=== PATIENT | female | born 1955 | race Caucasian/White ===

== ENCOUNTER 2016-12-16 13:14 | Outpatient (CLI) | payer BC ==
--- NOTE | 2016-12-16 20:10 | RAD ---
CHEST TWO VIEWS: Date: 12-16-16 Comparison: 10-31-15 FINDINGS: There has been no significant interval change. The heart remains normal in size. Median sternotomy sutures vee prior surgery. The lungs are currently clear with no acute infiltrates or effusion se en. A little streaking near the cardiac apex is probably a fat pad and is no different than the azael or study. Faint calcification is seen in the aortic arch. Some mild degenerative changes are seen in the mid thoracic spine. The lungs are slightly hyperexpanded. IMPRESSION: Stable exam showing no acute finding. POS: HOME
== END 2016-12-16 13:15 | disposition home or self-care (01) ==
LOC: BURRAD 13:14
PROVIDERS: ATTEND Physician Assistant
DX: R05 Cough (principal)
CPT/HCPCS: 71020

== ENCOUNTER 2017-03-04 14:16 | Outpatient (CLI) | payer BC ==
[2017-03-04 14:47] LABS: ALT (SGPT) 28 U/L (8-55); AST (SGOT) 31 U/L (5-34); Albumin 4.1 g/dL (3.4-4.8); Alkaline Phosphatase 44 U/L (40-150); Anion Gap 15 mmol/L (10-20); BUN (Urea Nitrogen) 38 mg/dL (9.8-20.1); Bilirubin, Total 1.1 mg/dL (0.2-1.2); Calc. Creatinine Clearance 0 mL/min (70-130); Calcium 9.6 mg/dL (7.8-10.44); Carbon Dioxide 20 mmol/L (23-31); Chloride 101 mmol/L (98-107); Estimated GFR-MDRD 23; Globulin 3.5 g/dL (2.4-3.5); Glucose 206 mg/dL (80-115); Lipase 52 U/L (8-78); Potassium 4.7 mmol/L (3.5-5.1); Protein, Total 7.6 g/dL (6.0-8.3); Sodium 131 mmol/L (136-145)
[2017-03-04 14:48] LABS: Hemoglobin 11.6 g/dL (12.0-16.0); Lymphocytes 28 % (21-51); MDiff Complete? YES; Mean Corpuscular HGB CONC 33.5 g/dL (32.0-36.0); Mean Corpuscular Hemoglobin 29.1 pg (27.0-31.0); Mean Corpuscular Volume 86.8 fl (81.0-99.0); Mean Platelet Volume 5.1 fL (7.4-10.4); Monocytes 7 % (0-10); Neutrophil 65 % (42-75); Platelet Count 275 thou/uL (130-400); RBC Distribution Width 14.5 % (11.5-14.5); Red Blood Cell (RBC) Count 4.01 mill/uL (4.20-5.40); Small Platelets MODERATE; White Blood Cell (WBC) Count 6.7 thou/uL (4.8-10.8)
== END 2017-03-04 14:17 | disposition home or self-care (01) ==
LOC: HPCALD 14:16
PROVIDERS: ATTEND Family Medicine
DX: R10.9 Unspecified abdominal pain (principal)
CPT/HCPCS: 36415; 80053; 83690; 85025

== ENCOUNTER 2017-05-02 07:42 | Outpatient (CLI) | payer BC ==
[2017-05-02 08:53] LABS: Albumin 4.1 g/dL (3.4-4.8); Anion Gap 16 mmol/L (10-20); BUN (Urea Nitrogen) 36 mg/dL (9.8-20.1); BUN/Creatinine Ratio 21.43; Calc. Creatinine Clearance 0 mL/min (70-130); Calcium 10.2 mg/dL (7.8-10.44); Carbon Dioxide 24 mmol/L (23-31); Chloride 97 mmol/L (98-107); Estimated GFR-MDRD 31; Glucose 100 mg/dL (80-115); Potassium 5.2 mmol/L (3.5-5.1); Sodium 132 mmol/L (136-145)
[2017-05-02 09:43] LABS: Hemoglobin 12.2 g/dL (12.0-16.0); Mean Corpuscular HGB CONC 33.4 g/dL (32.0-36.0); Mean Corpuscular Hemoglobin 28.6 pg (27.0-31.0); Mean Corpuscular Volume 85.7 fl (81.0-99.0); Platelet Count 301 thou/uL (130-400); RBC Distribution Width 13.7 % (11.5-14.5); Red Blood Cell (RBC) Count 4.26 mill/uL (4.20-5.40); White Blood Cell (WBC) Count 5.7 thou/uL (4.8-10.8)
[2017-05-02 15:56] LABS: Phosphorus 3.5 mg/dL (2.3-4.7)
[2017-05-02 16:17] LABS: Creatinine, Urine 93.63 mg/dL (47-110)
== END 2017-05-02 07:43 | disposition home or self-care (01) ==
LOC: BURLAB 07:42
PROVIDERS: ATTEND Internal Medicine Cardiovascular Disease
DX: Z48.21 Encounter for aftercare following heart transplant (principal); E11.22 Type 2 diabetes mellitus with diabetic chronic kidney disease; I12.9 Hypertensive chronic kidney disease with stage 1 through stage 4 chronic kidney disease, or unspecified chronic kidney disease; N18.3 Chronic kidney disease, stage 3 (moderate); N25.81 Secondary hyperparathyroidism of renal origin; Z94.1 Heart transplant status
CPT/HCPCS: 36415; 80069; 80158; 82570; 83970; 84156; 85027

== ENCOUNTER 2017-05-16 05:20 | Emergency (ER) | payer BC ==
[2017-05-16 06:11] LABS: Bilirubin Negative (Negative); Blood, Urine Moderate (Negative); Clarity Clear (Clear); Glucose, Urine (Dipstick) Negative (Negative); Leukocyte Negative (Negative); Nitrite Negative (Negative); Protein, Urine (Dipstick) 100 mg/dL (Neg-Trace); Urobilinogen 0.2 mg/dL (0.2-1.0)
[2017-05-16 06:17] LABS: INR-International Normal Ratio 1.2; PTT 32.6 SEC (22.9-36.1)
[2017-05-16 06:22] LABS: Bacteria/HPF None Seen HPF (None Seen); Squamous Epithelial 0-3 HPF (0-3); WBC/HPF 0-3 HPF (0-3)
[2017-05-16 06:25] LABS: Eosinophils 1 % (0-10); Hemoglobin 12.5 g/dL (12.0-16.0); Lymphocytes 37 % (21-51); MDiff Complete? YES; Mean Corpuscular Hemoglobin 29.6 pg (27.0-31.0); Mean Corpuscular Volume 84.7 fl (81.0-99.0); Mean Platelet Volume 4.5 fL (7.4-10.4); Monocytes 8 % (0-10); Neutrophil 54 % (42-75); Platelet Count 280 thou/uL (130-400); RBC Distribution Width 13.2 % (11.5-14.5); Red Blood Cell (RBC) Count 4.23 mill/uL (4.20-5.40); White Blood Cell (WBC) Count 4.8 thou/uL (4.8-10.8)
[2017-05-16 06:27] LABS: ALT (SGPT) 42 U/L (8-55); AST (SGOT) 52 U/L (5-34); Albumin 4.1 g/dL (3.4-4.8); Alkaline Phosphatase 45 U/L (40-150); Anion Gap 15 mmol/L (10-20); BUN (Urea Nitrogen) 23 mg/dL (9.8-20.1); Bilirubin, Total 0.7 mg/dL (0.2-1.2); Calc. Creatinine Clearance 0 mL/min (70-130); Calcium 9.6 mg/dL (7.8-10.44); Carbon Dioxide 21 mmol/L (23-31); Chloride 90 mmol/L (98-107); Estimated GFR-MDRD 43; Globulin 3.9 g/dL (2.4-3.5); Glucose 103 mg/dL (80-115); Lipase 57 U/L (8-78); Potassium 3.5 mmol/L (3.5-5.1); Sodium 122 mmol/L (136-145)
[2017-05-16 06:29] LABS: Troponin I 0.033 ng/mL (< 0.028)
[2017-05-16 06:33] LABS: CKMB 7.6 ng/mL (0-6.6)
== END 2017-05-16 08:20 | disposition short-term general hospital (02) ==
LOC: BURERS 05:20
DX: E87.1 Hypo-osmolality and hyponatremia (principal); J06.9 Acute upper respiratory infection, unspecified; R79.89 Other specified abnormal findings of blood chemistry; E11.9 Type 2 diabetes mellitus without complications; Z79.52 Long term (current) use of systemic steroids; Z79.899 Other long term (current) drug therapy
CPT/HCPCS: 36416; 51701; 71010; 80053; 81003; 81015; 82553; 83605; 83690; 84484; 85025; 85610; 85730; 87040; 93005; 94760; 96360; 36415-59; A4353

== ENCOUNTER 2017-06-04 08:21 | Emergency (ER) | payer BC ==
[2017-06-04 09:12] LABS: ALT (SGPT) 38 U/L (8-55); AST (SGOT) 40 U/L (5-34); Albumin 4.1 g/dL (3.4-4.8); Alkaline Phosphatase 40 U/L (40-150); Anion Gap 15 mmol/L (10-20); BUN (Urea Nitrogen) 26 mg/dL (9.8-20.1); Bilirubin, Total 0.6 mg/dL (0.2-1.2); Calc. Creatinine Clearance 0 mL/min (70-130); Calcium 10.3 mg/dL (7.8-10.44); Carbon Dioxide 26 mmol/L (23-31); Chloride 91 mmol/L (98-107); Estimated GFR-MDRD 35; Globulin 3.4 g/dL (2.4-3.5); Glucose 107 mg/dL (80-115); Potassium 3.9 mmol/L (3.5-5.1); Protein, Total 7.5 g/dL (6.0-8.3); Sodium 128 mmol/L (136-145)
[2017-06-04 09:18] LABS: CKMB 3.1 ng/mL (0-6.6); Troponin I 0.035 ng/mL (< 0.028)
[2017-06-04 09:36] LABS: Hemoglobin 12.1 g/dL (12.0-16.0); Mean Corpuscular HGB CONC 33.5 g/dL (32.0-36.0); Mean Corpuscular Hemoglobin 29.6 pg (27.0-31.0); Mean Corpuscular Volume 88.5 fl (81.0-99.0); Mean Platelet Volume 4.2 fL (7.4-10.4); Platelet Count 290 thou/uL (130-400); RBC Distribution Width 12.9 % (11.5-14.5); White Blood Cell (WBC) Count 6.2 thou/uL (4.8-10.8)
[2017-06-04 09:46] LABS: Band 6 % (5-11); Eosinophils 1 % (0-10); Lymphocytes 20 % (21-51); MDiff Complete? YES; Monocytes 9 % (0-10); Neutrophil 65 % (42-75); PLT Morphology Comment Appears Adequate; RBC Morphology Normal
[2017-06-04 09:47] LABS: Bilirubin Negative (Negative); Blood, Urine Negative (Negative); Clarity Clear (Clear); Glucose, Urine (Dipstick) Negative (Negative); Leukocyte Negative (Negative); Nitrite Negative (Negative); Protein, Urine (Dipstick) Negative (Neg-Trace); Urobilinogen 0.2 mg/dL (0.2-1.0); pH, Urine 6.5 (5.0-9.0)
--- NOTE | 2017-06-04 18:10 | RAD ---
CHEST TWO VIEWS 06/04/17 Comparison is made with the 05/16/17 study. The heart is normal in size. No new infiltrate or effusion was seen. Median sternotomy sutures are n oted as usual. The trachea is midline. IMPRESSION: No acute thoracic finding. POS: HOME
== END 2017-06-04 10:44 | disposition home or self-care (01) ==
LOC: BURERS 08:21
DX: I95.1 Orthostatic hypotension (principal); E11.9 Type 2 diabetes mellitus without complications; N18.3 Chronic kidney disease, stage 3 (moderate); Z87.891 Personal history of nicotine dependence; Z79.52 Long term (current) use of systemic steroids; Z79.899 Other long term (current) drug therapy
CPT/HCPCS: 36416; 71020; 80053; 81003; 82553; 83735; 84484; 85025; 85379; 93005; 94760; 96360; 36415-59

== ENCOUNTER 2017-06-13 11:48 | Outpatient (CLI) | payer BC ==
[2017-06-13 12:58] LABS: Anion Gap 12 mmol/L (10-20); BUN (Urea Nitrogen) 23 mg/dL (9.8-20.1); Calc. Creatinine Clearance 0 mL/min (70-130); Calcium 9.2 mg/dL (7.8-10.44); Carbon Dioxide 26 mmol/L (23-31); Chloride 88 mmol/L (98-107); Estimated GFR-MDRD 45; Glucose 88 mg/dL (80-115); Potassium 4.2 mmol/L (3.5-5.1); Sodium 122 mmol/L (136-145)
== END 2017-06-13 11:49 | disposition home or self-care (01) ==
LOC: HPCALD 11:48
PROVIDERS: ATTEND Physician Assistant
DX: Z86.39 Personal history of other endocrine, nutritional and metabolic disease (principal)
CPT/HCPCS: 36415; 80048

== ENCOUNTER 2019-03-11 15:33 | Outpatient (CLI) | payer MEDICARE, BC ==
--- NOTE | 2019-03-11 16:14 | RAD ---
EXAM: Chest PA and lateral: HISTORY: Cough. Congestion. COMPARISON: 06/04/2017 FINDINGS: Stable sternotomy wires. Heart: Normal cardiac silhouette Aorta: Atherosclerotic Pulmonary vessels: Normal Costophrenic angles: Costophrenic angles are clear. Lungs: No consolidation or masses. Patchy interstitial opacities may be due to edema or infiltrate. Pneumothorax: No pneumothorax Osseous structures: No osseous abnormalities IMPRESSION: 1. Patchy bibasilar interstitial opacities which may be due to edema or infiltrate. 2. Atherosclerosis.
== END 2019-03-11 15:34 | disposition home or self-care (01) ==
LOC: BURRAD 15:33
PROVIDERS: ATTEND Physician Assistant
DX: R05 Cough (principal); I70.0 Atherosclerosis of aorta; R91.8 Other nonspecific abnormal finding of lung field
CPT/HCPCS: 71046

== ENCOUNTER 2019-06-15 14:13 | Outpatient (CLI) | payer MEDICARE, BC ==
--- NOTE | 2019-06-16 07:52 | ULT ---
BILATERAL RENAL ULTRASOUND 06/15/19 Ultrasonography of the urinary tract was performed in this patient with hypertension and chronic kidn ey disease. The right kidney measures 10.6 x 4.4 x 3.9 cm. The left kidney measures 11.0 x 5.1 x 4.5 cm. The cortex is slightly echogenic in each kidney but is not remarkably thin. There are multiple cysts seen throughout each kidney. The largest in the right kidney measures 1.3 cm in diameter and the larg est in the left kidney is 5.1 cm. There is no renal obstruction. The urinary bladder contains no defe cts of concern and emptied well. IMPRESSION: Findings consistent with the history of chronic kidney disease with multiple bilateral renal cysts bu t no signs of obstruction. POS: HOME
== END 2019-06-15 14:14 | disposition home or self-care (01) ==
LOC: BURULT 14:13
PROVIDERS: ATTEND Internal Medicine Nephrology
DX: I12.9 Hypertensive chronic kidney disease with stage 1 through stage 4 chronic kidney disease, or unspecified chronic kidney disease (principal); E11.22 Type 2 diabetes mellitus with diabetic chronic kidney disease; N18.3 Chronic kidney disease, stage 3 (moderate); R80.9 Proteinuria, unspecified; N25.81 Secondary hyperparathyroidism of renal origin; N28.9 Disorder of kidney and ureter, unspecified
CPT/HCPCS: 76770

== ENCOUNTER 2019-07-12 14:44 | Outpatient (CLI) | payer MEDICARE, BC ==
--- NOTE | 2019-07-12 21:19 | RAD ---
CHEST TWO VIEWS: Date: 07-12-19 Comparison: 03-11-19 FINDINGS: There is actually a little more prominence of lung markings in the right base in February than there are t roxanne. A little bit of lingular streaking appears chronic. There are really no new infiltrates to spea k of. No effusions are seen. The heart size is stable and there is no congestive change. IMPRESSION: Actually slight improvement in the appearance of the right base over time. POS: HOME
== END 2019-07-12 14:45 | disposition home or self-care (01) ==
LOC: BURRAD 14:44
PROVIDERS: ATTEND Physician Assistant
DX: R05 Cough (principal)
CPT/HCPCS: 71046

== ENCOUNTER 2020-09-28 11:51 | Outpatient (CLI) | payer MEDICARE, BC ==
[2020-09-28 12:13] LABS: Bilirubin Negative (Negative); Blood, Urine Small (Negative); Clarity Clear (Clear); Glucose, Urine (Dipstick) Negative (Negative); Hemoglobin 10.3 g/dL (12.0-16.0); Ketone, Urine Negative (Negative); Leukocyte Negative (Negative); Mean Corpuscular HGB CONC 31.7 g/dL (32.0-36.0); Mean Corpuscular Hemoglobin 27.7 pg (27.0-31.0); Mean Corpuscular Volume 87.3 fL (78.0-98.0); Mean Platelet Volume 4.9 fL (7.4-10.4); Nitrite Negative (Negative); Platelet Count 202 thou/uL (130-400); Protein, Urine (Dipstick) 100 mg/dL (Neg-Trace); RBC Distribution Width 15.6 % (11.5-14.5); Red Blood Cell (RBC) Count 3.71 mill/uL (4.20-5.40); Specific Gravity, Urine 1.015 (1.005-1.030); Urobilinogen 0.2 mg/dL (Less than 2); White Blood Cell (WBC) Count 4.5 thou/uL (4.8-10.8)
[2020-09-28 12:20] LABS: Urine Culture Reflex No No
[2020-09-28 12:24] LABS: Bacteria/HPF 2+ HPF (None Seen); RBC/HPF 0-3 HPF (0-3); WBC/HPF 0-3 HPF (0-3)
[2020-09-28 12:36] LABS: Anion Gap 19 mmol/L (10-20); BUN (Urea Nitrogen) 73 mg/dL (9.8-20.1); BUN/Creatinine Ratio 24.25; Calc. Creatinine Clearance 0 mL/min (70-130); Calcium 11.6 mg/dL (7.8-10.44); Carbon Dioxide 17 mmol/L (23-31); Chloride 102 mmol/L (98-107); Glucose 109 mg/dL (80-115); Potassium 4.9 mmol/L (3.5-5.1); Sodium 133 mmol/L (136-145)
[2020-09-28 17:16] LABS: Phosphorus 4.9 mg/dL (2.3-4.7)
--- NOTE | 2020-09-28 17:19 | RAD ---
CHEST TWO VIEWS: 09/28/20 Comparison is made with a 07/12/19 study. The heart is normal in size. My understanding is that this is a cardiac transplant patient. There is no vascular congestion or edema. A focal infiltrate is seen in the right infrahilar region in the right lower lobe. A minor amount of infiltrate goes out towards the right costophrenic angle and there might even be a very small subpulm onic effusion on the right. The lungs are mildly hyperexpanded. The lung markings in general in the r ight lung are slightly more prominent than they were before. The left lung is clear except for some l ingular streaking which was present on the prior film, so is probably scarring. IMPRESSION: Interval appearance of a right lower lobe/right infrahilar infiltrate. Slight prominence of right yuri g markings in general. Infection is presumed. Pattern could just as easily be due to bacterial infect ion as viral. Preliminary report faxed to physician's office at approximately [phone]. Receipt confirmed via phone. POS: HOME
== END 2020-09-28 11:52 | disposition home or self-care (01) ==
LOC: BURRAD 11:51
PROVIDERS: ATTEND Internal Medicine Nephrology
DX: I12.9 Hypertensive chronic kidney disease with stage 1 through stage 4 chronic kidney disease, or unspecified chronic kidney disease (principal); E11.22 Type 2 diabetes mellitus with diabetic chronic kidney disease; N18.4 Chronic kidney disease, stage 4 (severe); D63.1 Anemia in chronic kidney disease; N25.81 Secondary hyperparathyroidism of renal origin; R91.8 Other nonspecific abnormal finding of lung field; Z94.1 Heart transplant status
CPT/HCPCS: 36415; 71046; 80069; 81001; 85027

== ENCOUNTER 2020-10-03 12:07 | Emergency (ER) | payer MEDICARE, BC ==
[2020-10-03 12:57] LABS: #Basophils 0.1 thou/uL (0.0-0.2); #Lymphocytes 1.1 thou/uL (1.20-3.40); #Monocytes 0.7 thou/uL (0.11-0.59); #Neutrophils 3.4 thou/uL (1.40-6.50); %Basophils 1.3 % (0.0-1.0); %Eosinophils 0.7 % (0.0-10.0); %Lymphocytes 21.4 % (21.0-51.0); %Monocytes 12.8 % (0.0-10.0); %Neutrophils 63.8 % (42.0-75.0); Hemoglobin 10.8 g/dL (12.0-16.0); Mean Corpuscular HGB CONC 31.6 g/dL (32.0-36.0); Mean Corpuscular Hemoglobin 27.1 pg (27.0-31.0); Mean Corpuscular Volume 85.6 fL (78.0-98.0); Mean Platelet Volume 5.4 fL (7.4-10.4); Platelet Count 255 thou/uL (130-400); RBC Distribution Width 15.6 % (11.5-14.5); Red Blood Cell (RBC) Count 3.99 mill/uL (4.20-5.40); White Blood Cell (WBC) Count 5.3 thou/uL (4.8-10.8)
[2020-10-03 13:14] LABS: ALT (SGPT) 18 U/L (8-55); AST (SGOT) 35 U/L (5-34); Albumin 3.9 g/dL (3.4-4.8); Alkaline Phosphatase 49 U/L (40-110); Anion Gap 21 mmol/L (10-20); BUN (Urea Nitrogen) 89 mg/dL (9.8-20.1); Bilirubin, Total 0.6 mg/dL (0.2-1.2); CK (CPK) 74 U/L (29-168); Calc. Creatinine Clearance 0 mL/min (70-130); Carbon Dioxide 16 mmol/L (23-31); Chloride 94 mmol/L (98-107); Globulin 4.5 g/dL (2.4-3.5); Glucose 107 mg/dL (80-115); Potassium 4.9 mmol/L (3.5-5.1); Protein, Total 8.4 g/dL (6.0-8.3); Sodium 126 mmol/L (136-145)
[2020-10-03 13:20] LABS: Calcium 12.3 mg/dL (7.8-10.44)
[2020-10-03 13:32] LABS: CKMB 1.8 ng/mL (0-6.6)
[2020-10-03] MEDS ORDERED: cefTRIAXone\\ROCEPHIN 1 GM VIAL ONE (14:22)
[2020-10-03] MEDS ORDERED: Sodium Chloride 0.9% 100 ML ONE (14:23)
[2020-10-03 14:59] LABS: Bilirubin Negative (Negative); Blood, Urine Small (Negative); Clarity Clear (Clear); Glucose, Urine (Dipstick) Negative (Negative); Ketone, Urine Negative (Negative); Leukocyte Negative (Negative); Nitrite Negative (Negative); Protein, Urine (Dipstick) 100 mg/dL (Neg-Trace); Urobilinogen 0.2 mg/dL (Less than 2); pH, Urine 5.5 (5.0-9.0)
[2020-10-03 15:01] LABS: Bacteria/HPF Rare-Few HPF (None Seen); RBC/HPF 0-3 HPF (0-3); Squamous Epithelial 0-3 HPF (0-3); WBC/HPF 0-3 HPF (0-3)
--- NOTE | 2020-10-03 15:58 | RAD ---
CHEST TWO VIEWS: 10/03/20 COMPARISON: Comparison is made with the 09/28 study. Again noted is a right basilar infiltrate just below the right hilum. If anything, it seems slightly more expensive today than it was previously. The streaky area in the left base seems no different and may actually be chronic scarring. There are no large effusions. The lung apices are relatively clear . IMPRESSION: Right lower lobe pneumonia. Slightly denser today than before. POS: HOME
== END 2020-10-03 17:36 | disposition short-term general hospital (02) ==
LOC: BURERS 12:07
DX: J18.9 Pneumonia, unspecified organism (principal); R77.8 Other specified abnormalities of plasma proteins; E87.2 Acidosis; E11.22 Type 2 diabetes mellitus with diabetic chronic kidney disease; N18.6 End stage renal disease; Z87.891 Personal history of nicotine dependence; Z79.899 Other long term (current) drug therapy
CPT/HCPCS: 36415; 71046; 80053; 81003; 81015; 82550; 82553; 83605; 83880; 84484; 85025; 87040; 93005; 96365; J0696; J3490

== ENCOUNTER 2020-12-05 09:59 | Outpatient (CLI) | payer MEDICARE, BC ==
--- NOTE | 2020-12-05 19:34 | CT ---
CT OF THE THORAX WITHOUT CONTRAST: 12/05/20 This is compared with a prior exam dated one year ago. Today's study shows no sign of mediastinal mas s or significant adenopathy. Some calcification is seen in the aortic arch and there is some faint ca lcification in the LAD. The ascending aorta is minimally widened at 3.4 cm. No mediastinal mass was s een. There is no pericardial effusion. Residual infiltrate is seen in the right lower lobe from a prior pneumonia. Obviously progress has be en made over time. There is some thickening in the major fissure on the left. No new infiltrate was d etected. No definite pulmonary mass of concern was found. On scan 30, there was a 3 to 4 mm nodular d ensity peripherally in the right lower lobe that may actually be related to a vessel. Currently, I do ubt its significance. It was present before and has changed minimally. IMPRESSION: 1. Some residual infiltrate from the right lower lobe from the patient's recent pneumonia. Overa ll, the lungs are clear. 2. No acute mediastinal abnormality. 3. Faint calcifications in the LAD. POS: HOME
--- NOTE | 2020-12-05 19:59 | CT ---
CT ABDOMEN WITHOUT CONTRAST: 12/05/[address] shows no acute findings in the liver, spleen, or pancreas. There are numerous low de nsity areas throughout each kidney that a prior ultrasound has shown are cysts. There is also a high density area or two in each kidney that is likely a hemorrhagic cyst. Very large exophytic lesion is seen attached to the left kidney that measures 6.3 cm in diameter. It also is presumed to be a cyst, even though its mean CT numbers are slightly high at 20, a prior renal ultrasound of 06/15/19 showed it was cystic. It is slightly larger than it was in 2018 (5.2 cm then). The aorta shows some calcifica tion but no aneurysm. A prior cholecystectomy is seen. The adrenal glands were unremarkable. The visi ble bowel showed no dilation or wall thickening. Two densities in the stomach are presumed to be medi cation. IMPRESSION: 1. No acute abdominal findings. 2. Various lucencies and hyperdensities throughout each kidney that are presumed to be cysts bas ed upon the prior ultrasound and prior CT scans. The appearance overtime has changed only slightly wi th the large exophytic lesion of the left kidney being slightly larger. POS: HOME
== END 2020-12-05 10:00 | disposition home or self-care (01) ==
LOC: BURCT 09:59
PROVIDERS: ATTEND Physician Assistant
DX: R10.11 Right upper quadrant pain (principal); N28.89 Other specified disorders of kidney and ureter
CPT/HCPCS: 71250; 74150

== ENCOUNTER 2021-03-19 10:16 | Emergency (ER) | payer MEDICARE, BC ==
[2021-03-19 10:56] LABS: Band 3 % (5-11); Eosinophils 2 % (0-10); Lymphocytes 51 % (21-51); MDiff Complete? YES; Mean Corpuscular HGB CONC 33.7 g/dL (32.0-36.0); Mean Corpuscular Hemoglobin 32.6 pg (27.0-31.0); Mean Corpuscular Volume 96.7 fL (78.0-98.0); Mean Platelet Volume 4.8 fL (7.4-10.4); Monocytes 2 % (0-10); Neutrophil 42 % (42-75); Platelet Count 87 thou/uL (130-400); Platelet Morphology Comment PLTS DECREASED ON SLIDE; RBC Distribution Width 14.4 % (11.5-14.5); Red Blood Cell (RBC) Count 3.38 mill/uL (4.20-5.40); White Blood Cell (WBC) Count 5.4 thou/uL (4.8-10.8)
[2021-03-19 10:59] LABS: ALT (SGPT) 20 U/L (8-55); AST (SGOT) 24 U/L (5-34); Albumin 3.8 g/dL (3.4-4.8); Alkaline Phosphatase 37 U/L (40-110); Anion Gap 15 mmol/L (10-20); BUN (Urea Nitrogen) 58 mg/dL (9.8-20.1); Bilirubin, Total 0.7 mg/dL (0.2-1.2); Calc. Creatinine Clearance 0 mL/min (70-130); Calcium 9.9 mg/dL (7.8-10.44); Carbon Dioxide 19 mmol/L (23-31); Chloride 100 mmol/L (98-107); Globulin 3.1 g/dL (2.4-3.5); Glucose 100 mg/dL (80-115); Potassium 4.8 mmol/L (3.5-5.1); Protein, Total 6.9 g/dL (5.8-8.1); Sodium 129 mmol/L (136-145)
== END 2021-03-19 12:54 | disposition home or self-care (01) ==
LOC: BURERS 10:16
DX: E86.0 Dehydration (principal); E87.1 Hypo-osmolality and hyponatremia; N17.9 Acute kidney failure, unspecified; R19.7 Diarrhea, unspecified; E11.22 Type 2 diabetes mellitus with diabetic chronic kidney disease; N18.6 End stage renal disease; Z87.891 Personal history of nicotine dependence; Z79.899 Other long term (current) drug therapy
CPT/HCPCS: 36415; 80053; 85025; 99284

== ENCOUNTER 2021-06-08 09:01 | Emergency (ER) | payer MEDICARE, BC ==
[2021-06-08] MEDS ORDERED: Ondansetron PF 4 MG/2 ML Vial ONE (09:44)
[2021-06-08] MEDS ORDERED: Hyoscyamine Sulfate SL 0.125 mg Tablet ONE (09:44)
[2021-06-08] MEDS ORDERED: Famotidine In NaCl 20 mg/50 ml Premix Bag ONE (09:44)
[2021-06-08 10:04] LABS: ALT (SGPT) 21 U/L (8-55); AST (SGOT) 21 U/L (5-34); Albumin 3.9 g/dL (3.4-4.8); Alkaline Phosphatase 47 U/L (40-110); Anion Gap 16 mmol/L (10-20); BUN (Urea Nitrogen) 50 mg/dL (9.8-20.1); Bilirubin, Total 0.9 mg/dL (0.2-1.2); Calc. Creatinine Clearance 0 mL/min (70-130); Calcium 10.2 mg/dL (7.8-10.44); Carbon Dioxide 23 mmol/L (23-31); Chloride 98 mmol/L (98-107); Globulin 2.8 g/dL (2.4-3.5); Glucose 139 mg/dL (80-115); Lipase 51 U/L (8-78); Potassium 4.2 mmol/L (3.5-5.1); Protein, Total 6.7 g/dL (5.8-8.1); Sodium 133 mmol/L (136-145)
[2021-06-08 10:13] LABS: #Lymphocytes 0.7 thou/uL (1.20-3.40); #Monocytes 0.9 thou/uL (0.11-0.59); %Basophils 0.4 % (0.0-1.0); %Eosinophils 0.1 % (0.0-10.0); %Lymphocytes 7.2 % (21.0-51.0); %Monocytes 9.6 % (0.0-10.0); %Neutrophils 82.7 % (42.0-75.0); Mean Corpuscular HGB CONC 33.1 g/dL (32.0-36.0); Mean Corpuscular Volume 99.7 fL (78.0-98.0); Mean Platelet Volume 4.7 fL (7.4-10.4); Platelet Count 92 thou/uL (130-400); RBC Distribution Width 13.6 % (11.5-14.5); Red Blood Cell (RBC) Count 3.03 mill/uL (4.20-5.40); White Blood Cell (WBC) Count 9.6 thou/uL (4.8-10.8)
[2021-06-08 10:16] LABS: MDiff Complete? YES; Platelet Morphology Comment Appears Decreased
[2021-06-08 10:21] LABS: CKMB 1.6 ng/mL (0-6.6)
[2021-06-08 10:43] LABS: Bilirubin Negative (Negative); Blood, Urine Moderate (Negative); Clarity Clear (Clear); Glucose, Urine (Dipstick) 100 mg/dL (Negative); Ketone, Urine Negative (Negative); Leukocyte Small (Negative); Nitrite Negative (Negative); Protein, Urine (Dipstick) > or equal to 300 mg/dL (Neg-Trace); Specific Gravity, Urine 1.015 (1.005-1.030); Urobilinogen 0.2 mg/dL (Less than 2)
[2021-06-08 10:50] LABS: Bacteria/HPF Rare-Few HPF (None Seen); WBC/HPF 0-3 HPF (0-3)
[2021-06-08] MEDS ORDERED: Furosemide 40 MG/4 ML VIAL ONE (11:22)
[2021-06-08] MEDS ORDERED: Acetaminophen 500 MG TAB ONE (11:50)
[2021-06-08] MEDS ORDERED: traMADol HCl 50 MG TAB ONE (11:50)
[2021-06-08 13:23] LABS: Troponin I 0.055 ng/mL (< 0.028)
== END 2021-06-08 14:21 | disposition home or self-care (01) ==
LOC: BURERS 09:01
DX: E11.22 Type 2 diabetes mellitus with diabetic chronic kidney disease (principal); N18.9 Chronic kidney disease, unspecified; I50.9 Heart failure, unspecified; R19.7 Diarrhea, unspecified; Z87.891 Personal history of nicotine dependence; Z79.899 Other long term (current) drug therapy
CPT/HCPCS: 36415; 80053; 81003; 81015; 82553; 83605; 83690; 83880; 84484; 85025; 87040; 87086; 96365; 96375; J1940; J2405

== ENCOUNTER 2021-06-09 19:37 | Inpatient (IN) | payer MEDICARE, BC ==
[2021-06-09 21:11] LABS: ALT (SGPT) 20 U/L (8-55); AST (SGOT) 20 U/L (5-34); Albumin 3.6 g/dL (3.4-4.8); Alkaline Phosphatase 44 U/L (40-110); Anion Gap 17 mmol/L (10-20); BUN (Urea Nitrogen) 55 mg/dL (9.8-20.1); Bilirubin, Total 1.4 mg/dL (0.2-1.2); Calc. Creatinine Clearance 0 mL/min (70-130); Calcium 9.9 mg/dL (7.8-10.44); Carbon Dioxide 20 mmol/L (23-31); Chloride 95 mmol/L (98-107); Glucose 115 mg/dL (80-115); Lipase 22 U/L (8-78); Potassium 4.1 mmol/L (3.5-5.1); Protein, Total 6.6 g/dL (5.8-8.1); Sodium 128 mmol/L (136-145)
[2021-06-09 21:31] LABS: CKMB 1.4 ng/mL (0-6.6)
[2021-06-09 21:36] LABS: #Lymphocytes 0.7 thou/uL (1.20-3.40); #Monocytes 0.7 thou/uL (0.11-0.59); #Neutrophils 8.8 thou/uL (1.40-6.50); %Basophils 0.2 % (0.0-1.0); %Eosinophils 0.1 % (0.0-10.0); %Lymphocytes 6.5 % (21.0-51.0); %Monocytes 6.7 % (0.0-10.0); %Neutrophils 86.5 % (42.0-75.0); Hemoglobin 9.4 g/dL (12.0-16.0); Mean Corpuscular HGB CONC 33.8 g/dL (32.0-36.0); Mean Corpuscular Hemoglobin 33.7 pg (27.0-31.0); Mean Corpuscular Volume 99.6 fL (78.0-98.0); Mean Platelet Volume 5.2 fL (7.4-10.4); Platelet Count 75 thou/uL (130-400); Platelet Morphology Comment Appears Decreased; RBC Distribution Width 13.9 % (11.5-14.5); RBC Morphology Normal; Red Blood Cell (RBC) Count 2.79 mill/uL (4.20-5.40); White Blood Cell (WBC) Count 10.2 thou/uL (4.8-10.8)
[2021-06-09 22:01] LABS: Bilirubin Negative (Negative); Blood, Urine Moderate (Negative); Clarity Clear (Clear); Glucose, Urine (Dipstick) Negative (Negative); Ketone, Urine Negative (Negative); Leukocyte Negative (Negative); Nitrite Negative (Negative); Protein, Urine (Dipstick) > or equal to 300 mg/dL (Neg-Trace); Specific Gravity, Urine 1.015 (1.005-1.030); Urobilinogen 0.2 mg/dL (Less than 2); pH, Urine 5.5 (5.0-9.0)
[2021-06-09 22:07] LABS: Bacteria/HPF Rare-Few HPF (None Seen); Mucous/LPF 2+ LPF (<2+); Squamous Epithelial 0-3 HPF (0-3); WBC/HPF 0-3 HPF (0-3)
[2021-06-09] MEDS ORDERED: Piperacillin/Tazobactam 4.5 GM VIAL ONE (22:42)
[2021-06-09 23:29] LABS: SARS-CoV-2 NAA Rapid Test Not Detected (NotDetected)
[2021-06-10 02:49] VITALS: BMI 23.0
[2021-06-10] MEDS ORDERED: Piperacillin/Tazobactam 3.375 GM in Sodium Chloride 0.9% 100 ML IVPB SCH (05:00)
[2021-06-10] MEDS ORDERED: Zolpidem Tartrate 5 MG TAB PO PRN (07:04)
[2021-06-10] MEDS: Calcium Carbonate 500 MG TAB PO SCH (09:00)
[2021-06-10] MEDS ORDERED: FATTY ACIDS PO SCH (09:00)
[2021-06-10] MEDS ORDERED: OMEGA PO SCH (09:00)
[2021-06-10] MEDS: Valsartan 80 MG TAB PO SCH ×2 (09:00→21:01)
[2021-06-10] MEDS: Doxazosin 2 MG TAB PO SCH ×2 (09:01→21:00)
[2021-06-10] MEDS: Fish Oil 1,000 MG CAP PO SCH ×2 (09:01→21:00)
[2021-06-10] MEDS: predniSONE 5 MG TAB PO SCH (09:01)
[2021-06-10] MEDS: Ferrous Sulfate 325 MG TAB PO SCH (09:01)
[2021-06-10] MEDS: Escitalopram Oxalate 20 mg Tablet PO SCH (09:02)
[2021-06-10] MEDS: Multivitamin W/ Minerals 1 TAB PO SCH (09:02)
[2021-06-10] MEDS: Atenolol 50 MG TAB PO SCH (09:03)
[2021-06-10] MEDS: Losartan Potassium 50 MG TAB PO SCH ×2 (09:03→21:01)
[2021-06-10] MEDS: Cholecalciferol 1,000 UNITS (25 MCG) TAB PO SCH (09:08)
[2021-06-10] MEDS: Furosemide 40 MG TAB PO SCH (09:08)
[2021-06-10] MEDS: Famotidine 20 MG TAB PO SCH (09:08)
[2021-06-10] MEDS: Piperacillin/Tazobactam 3.375 GM in Sodium Chloride 0.9% 100 ML IVPB SCH ×2 (09:11→20:57)
[2021-06-10] MEDS: PARICALCITOL 1 MCG PO SCH (13:34)
[2021-06-10] MEDS: PATIENT'S HOME MEDICATION PO SCH ×4 (13:36→21:13)
[2021-06-10] MEDS: NEORAL PO SCH ×2 (16:50→18:39)
[2021-06-10] MEDS: Atorvastatin Calcium 40 MG TAB PO SCH (21:01)
[2021-06-10] MEDS: Zolpidem Tartrate 5 MG TAB PO SCH (21:01)
[2021-06-10] MEDS: CYCLOSPORINE 50 MG PO SCH (21:13)
[2021-06-11] MEDS: Levothyroxine Sodium 50 MCG TAB PO SCH (05:37)
[2021-06-11] MEDS: Levothyroxine Sodium 25 MCG TAB PO SCH (05:37)
[2021-06-11] MEDS: predniSONE 5 MG TAB PO SCH (08:42)
[2021-06-11] MEDS: Atenolol 50 MG TAB PO SCH (08:43)
[2021-06-11] MEDS: Escitalopram Oxalate 20 mg Tablet PO SCH (08:45)
[2021-06-11] MEDS: Cholecalciferol 1,000 UNITS (25 MCG) TAB PO SCH (08:45)
[2021-06-11] MEDS: Furosemide 40 MG TAB PO SCH (08:45)
[2021-06-11] MEDS: Fish Oil 1,000 MG CAP PO SCH ×2 (08:45→21:48)
[2021-06-11] MEDS: Famotidine 20 MG TAB PO SCH (08:45)
[2021-06-11] MEDS: Losartan Potassium 50 MG TAB PO SCH ×2 (08:45→21:48)
[2021-06-11] MEDS: Valsartan 80 MG TAB PO SCH ×2 (08:45→21:48)
[2021-06-11] MEDS: Calcium Carbonate 500 MG TAB PO SCH (08:46)
[2021-06-11] MEDS: Multivitamin W/ Minerals 1 TAB PO SCH (08:46)
[2021-06-11] MEDS: Ferrous Sulfate 325 MG TAB PO SCH (08:46)
[2021-06-11] MEDS: Doxazosin 2 MG TAB PO SCH ×2 (08:46→21:47)
[2021-06-11] MEDS: Niacin SR 500 MG CAP PO SCH (08:47)
[2021-06-11] MEDS: CYCLOSPORINE 50 MG PO SCH ×2 (08:48→21:54)
[2021-06-11] MEDS: PARICALCITOL 1 MCG PO SCH (08:50)
[2021-06-11] MEDS: PATIENT'S HOME MEDICATION PO SCH ×2 (08:50→21:54)
[2021-06-11] MEDS: SIROLIMUS 1 MG PO SCH (08:51)
[2021-06-11] MEDS: Piperacillin/Tazobactam 3.375 GM in Sodium Chloride 0.9% 100 ML IVPB SCH ×2 (08:54→21:49)
[2021-06-11] MEDS: Atorvastatin Calcium 40 MG TAB PO SCH (21:48)
[2021-06-11] MEDS: Zolpidem Tartrate 5 MG TAB PO SCH (21:49)
[2021-06-12 05:28] LABS: Anion Gap 18 mmol/L (10-20); BUN (Urea Nitrogen) 52 mg/dL (9.8-20.1); Calc. Creatinine Clearance 16 mL/min (70-130); Calcium 10.1 mg/dL (7.8-10.44); Carbon Dioxide 23 mmol/L (23-31); Chloride 96 mmol/L (98-107); Glucose 101 mg/dL (80-115); Potassium 3.5 mmol/L (3.5-5.1); Sodium 133 mmol/L (136-145)
[2021-06-12] MEDS: Levothyroxine Sodium 25 MCG TAB PO SCH (05:39)
[2021-06-12] MEDS: Levothyroxine Sodium 50 MCG TAB PO SCH (05:39)
[2021-06-12 05:56] LABS: Hemoglobin 8.8 g/dL (12.0-16.0); Mean Corpuscular HGB CONC 34.3 g/dL (32.0-36.0); Mean Corpuscular Hemoglobin 33.1 pg (27.0-31.0); Mean Corpuscular Volume 96.4 fL (78.0-98.0); Mean Platelet Volume 5.6 fL (7.4-10.4); Platelet Count 93 thou/uL (130-400); RBC Distribution Width 13.1 % (11.5-14.5); Red Blood Cell (RBC) Count 2.65 mill/uL (4.20-5.40); White Blood Cell (WBC) Count 8.9 thou/uL (4.8-10.8)
[2021-06-12 06:37] LABS: Band 16 % (5-11); Lymphocytes 17 % (21-51); MDiff Complete? YES; Monocytes 18 % (0-10); Neutrophil 49 % (42-75); Platelet Morphology Comment Appears Decreased; RBC Morphology Normal
[2021-06-12] MEDS: Ondansetron ODT 4 MG TAB PO PRN (08:03)
[2021-06-12] MEDS: Sodium Chloride 0.9% 1,000 ML IV SCH (10:10)
[2021-06-12] MEDS: Piperacillin/Tazobactam 3.375 GM in Sodium Chloride 0.9% 100 ML IVPB SCH (10:11)
[2021-06-12] MEDS: predniSONE 5 MG TAB PO SCH (10:22)
[2021-06-12] MEDS: Losartan Potassium 50 MG TAB PO SCH ×2 (10:22→20:35)
[2021-06-12] MEDS: Fish Oil 1,000 MG CAP PO SCH ×2 (10:22→20:34)
[2021-06-12] MEDS: Famotidine 20 MG TAB PO SCH (10:22)
[2021-06-12] MEDS: Cholecalciferol 1,000 UNITS (25 MCG) TAB PO SCH (10:23)
[2021-06-12] MEDS: Doxazosin 2 MG TAB PO SCH ×2 (10:23→20:34)
[2021-06-12] MEDS: Escitalopram Oxalate 20 mg Tablet PO SCH (10:23)
[2021-06-12] MEDS: Calcium Carbonate 500 MG TAB PO SCH (10:23)
[2021-06-12] MEDS: Ferrous Sulfate 325 MG TAB PO SCH (10:23)
[2021-06-12] MEDS: Valsartan 80 MG TAB PO SCH ×2 (10:23→20:36)
[2021-06-12] MEDS: PATIENT'S HOME MEDICATION PO SCH (10:24)
[2021-06-12] MEDS: Multivitamin W/ Minerals 1 TAB PO SCH (10:24)
[2021-06-12] MEDS: SIROLIMUS 1 MG PO SCH (10:25)
[2021-06-12] MEDS: Atenolol 50 MG TAB PO SCH (10:26)
[2021-06-12] MEDS: PARICALCITOL 1 MCG PO SCH (10:26)
[2021-06-12] MEDS: Niacin SR 500 MG CAP PO SCH (10:27)
[2021-06-12] MEDS: CYCLOSPORINE 50 MG PO SCH ×2 (10:27→20:32)
[2021-06-12] MEDS: Furosemide 40 MG TAB PO SCH (10:29)
[2021-06-12] MEDS ORDERED: Diphenoxylate HCl/Atropine Tablet PO PRN (14:23)
[2021-06-12] MEDS: MAGNESIUM CHLORIDE 64 MG PO SCH (20:33)
[2021-06-12] MEDS: Atorvastatin Calcium 40 MG TAB PO SCH (20:35)
[2021-06-12] MEDS: Zolpidem Tartrate 5 MG TAB PO SCH (20:36)
[2021-06-13] MEDS: Sodium Chloride 0.9% 1,000 ML IV SCH ×2 (02:58→17:15)
[2021-06-13] MEDS: Levothyroxine Sodium 50 MCG TAB PO SCH (05:39)
[2021-06-13] MEDS: Levothyroxine Sodium 25 MCG TAB PO SCH (05:40)
[2021-06-13 05:59] LABS: Hemoglobin 8.3 g/dL (12.0-16.0); Platelet Count 84 thou/uL (130-400)
[2021-06-13 06:06] LABS: Anion Gap 17 mmol/L (10-20); BUN (Urea Nitrogen) 47 mg/dL (9.8-20.1); Calc. Creatinine Clearance 17 mL/min (70-130); Calcium 9.7 mg/dL (7.8-10.44); Carbon Dioxide 21 mmol/L (23-31); Chloride 98 mmol/L (98-107); Glucose 91 mg/dL (80-115); Potassium 3.4 mmol/L (3.5-5.1); Sodium 133 mmol/L (136-145)
[2021-06-13] MEDS: CYCLOSPORINE 50 MG PO SCH ×2 (08:56→20:49)
[2021-06-13] MEDS: SIROLIMUS 1 MG PO SCH (08:57)
[2021-06-13] MEDS: MAGNESIUM CHLORIDE 64 MG PO SCH ×2 (08:58→20:49)
[2021-06-13] MEDS: PARICALCITOL 1 MCG PO SCH (08:58)
[2021-06-13] MEDS: NIACINAMIDE 500 MG PO SCH (08:59)
[2021-06-13] MEDS: Losartan Potassium 50 MG TAB PO SCH ×2 (09:00→20:51)
[2021-06-13] MEDS: Doxazosin 2 MG TAB PO SCH ×2 (09:01→20:50)
[2021-06-13] MEDS: Fish Oil 1,000 MG CAP PO SCH ×2 (09:01→20:50)
[2021-06-13] MEDS: Escitalopram Oxalate 20 mg Tablet PO SCH (09:02)
[2021-06-13] MEDS: Multivitamin W/ Minerals 1 TAB PO SCH (09:02)
[2021-06-13] MEDS: Ferrous Sulfate 325 MG TAB PO SCH (09:03)
[2021-06-13] MEDS: Valsartan 80 MG TAB PO SCH ×2 (09:03→20:50)
[2021-06-13] MEDS: Famotidine 20 MG TAB PO SCH (09:04)
[2021-06-13] MEDS: Cholecalciferol 1,000 UNITS (25 MCG) TAB PO SCH (09:04)
[2021-06-13] MEDS: Atenolol 50 MG TAB PO SCH (09:05)
[2021-06-13] MEDS: predniSONE 5 MG TAB PO SCH (09:06)
[2021-06-13] MEDS: Calcium Carbonate 500 MG TAB PO SCH (09:10)
[2021-06-13] MEDS: Zolpidem Tartrate 5 MG TAB PO SCH (20:50)
[2021-06-13] MEDS: Atorvastatin Calcium 40 MG TAB PO SCH (20:50)
[2021-06-14] MEDS: Acetaminophen 325 MG TAB PO PRN (02:53)
[2021-06-14] MEDS ORDERED: Guaifenesin DM 100-10/5 ML UDCUP PO PRN (03:49)
[2021-06-14] MEDS: Levothyroxine Sodium 50 MCG TAB PO SCH (05:12)
[2021-06-14] MEDS: Levothyroxine Sodium 25 MCG TAB PO SCH (05:12)
[2021-06-14 06:26] LABS: Anion Gap 17 mmol/L (10-20); BUN (Urea Nitrogen) 44 mg/dL (9.8-20.1); Calc. Creatinine Clearance 20 mL/min (70-130); Calcium 9.5 mg/dL (7.8-10.44); Carbon Dioxide 18 mmol/L (23-31); Chloride 100 mmol/L (98-107); Glucose 88 mg/dL (80-115); Potassium 3.5 mmol/L (3.5-5.1); Sodium 131 mmol/L (136-145)
[2021-06-14 06:55] LABS: Hemoglobin 7.3 g/dL (12.0-16.0); Platelet Count 85 thou/uL (130-400)
[2021-06-14] MEDS: CYCLOSPORINE 50 MG PO SCH ×2 (09:22→21:33)
[2021-06-14] MEDS: NIACINAMIDE 500 MG PO SCH (09:23)
[2021-06-14] MEDS: PARICALCITOL 1 MCG PO SCH ×2 (09:25→09:26)
[2021-06-14] MEDS: SIROLIMUS 1 MG PO SCH (09:29)
[2021-06-14] MEDS: MAGNESIUM CHLORIDE 64 MG PO SCH ×2 (09:29→21:34)
[2021-06-14] MEDS: Valsartan 80 MG TAB PO SCH ×2 (09:30→20:41)
[2021-06-14] MEDS: Atenolol 50 MG TAB PO SCH (09:31)
[2021-06-14] MEDS: Losartan Potassium 50 MG TAB PO SCH ×2 (09:31→20:41)
[2021-06-14] MEDS: Cholecalciferol 1,000 UNITS (25 MCG) TAB PO SCH (09:33)
[2021-06-14] MEDS: Doxazosin 2 MG TAB PO SCH ×2 (09:33→20:40)
[2021-06-14] MEDS: Ferrous Sulfate 325 MG TAB PO SCH (09:34)
[2021-06-14] MEDS: Fish Oil 1,000 MG CAP PO SCH ×2 (09:34→20:39)
[2021-06-14] MEDS: Famotidine 20 MG TAB PO SCH (09:35)
[2021-06-14] MEDS: Escitalopram Oxalate 20 mg Tablet PO SCH (09:35)
[2021-06-14] MEDS: Multivitamin W/ Minerals 1 TAB PO SCH (09:35)
[2021-06-14] MEDS: Calcium Carbonate 500 MG TAB PO SCH (09:36)
[2021-06-14] MEDS: predniSONE 5 MG TAB PO SCH (09:36)
[2021-06-14] MEDS: Atorvastatin Calcium 40 MG TAB PO SCH (20:39)
[2021-06-14] MEDS: Zolpidem Tartrate 5 MG TAB PO SCH (20:41)
[2021-06-15] MEDS: Ondansetron ODT 4 MG TAB PO PRN (01:58)
[2021-06-15] MEDS: Levothyroxine Sodium 25 MCG TAB PO SCH (04:48)
[2021-06-15] MEDS: Levothyroxine Sodium 50 MCG TAB PO SCH (04:49)
[2021-06-15] MEDS: Acetaminophen 325 MG TAB PO PRN (04:49)
[2021-06-15 05:14] LABS: Platelet Count 94 thou/uL (130-400)
[2021-06-15 05:16] LABS: Anion Gap 19 mmol/L (10-20); BUN (Urea Nitrogen) 45 mg/dL (9.8-20.1); Calc. Creatinine Clearance 20 mL/min (70-130); Carbon Dioxide 17 mmol/L (23-31); Chloride 97 mmol/L (98-107); Glucose 96 mg/dL (80-115); Potassium 4.1 mmol/L (3.5-5.1); Sodium 129 mmol/L (136-145)
[2021-06-15] MEDS ORDERED: Sodium Chloride 0.45% 1,000 ML IV SCH (08:00)
[2021-06-15] MEDS: SIROLIMUS 1 MG PO SCH (09:46)
[2021-06-15] MEDS: PARICALCITOL 1 MCG PO SCH (09:48)
[2021-06-15] MEDS: NIACINAMIDE 500 MG PO SCH (09:49)
[2021-06-15] MEDS: MAGNESIUM CHLORIDE 64 MG PO SCH ×2 (09:50→20:02)
[2021-06-15] MEDS: CYCLOSPORINE 50 MG PO SCH ×2 (09:51→20:02)
[2021-06-15] MEDS: Calcium Carbonate 500 MG TAB PO SCH (09:52)
[2021-06-15] MEDS: Valsartan 80 MG TAB PO SCH ×2 (09:52→20:01)
[2021-06-15] MEDS: Multivitamin W/ Minerals 1 TAB PO SCH (09:53)
[2021-06-15] MEDS: Doxazosin 2 MG TAB PO SCH ×2 (09:53→19:57)
[2021-06-15] MEDS: predniSONE 5 MG TAB PO SCH (09:58)
[2021-06-15] MEDS: Famotidine 20 MG TAB PO SCH (09:58)
[2021-06-15] MEDS: Losartan Potassium 50 MG TAB PO SCH ×2 (09:59→19:57)
[2021-06-15] MEDS: Fish Oil 1,000 MG CAP PO SCH ×2 (10:02→19:56)
[2021-06-15] MEDS: Ferrous Sulfate 325 MG TAB PO SCH (10:04)
[2021-06-15] MEDS: Escitalopram Oxalate 20 mg Tablet PO SCH (10:11)
[2021-06-15] MEDS: Cholecalciferol 1,000 UNITS (25 MCG) TAB PO SCH (10:12)
[2021-06-15] MEDS: Atenolol 50 MG TAB PO SCH (10:13)
[2021-06-15 13:47] LABS: SARS-CoV-2 NAA Rapid Test DETECTED (NotDetected)
[2021-06-15 17:14] LABS: CMV DNA-PCR Test Positive < 200 IU/mL (Negative)
[2021-06-15 18:35] VITALS: BP 151/91; TEMP 97.6
[2021-06-15] MEDS: Atorvastatin Calcium 40 MG TAB PO SCH (19:56)
[2021-06-15] MEDS: Zolpidem Tartrate 5 MG TAB PO SCH (19:59)
[2021-06-19 10:14] LABS: Norovirus GI Negative (Negative); Norovirus GII Negative (Negative)
== END 2021-06-15 20:00 | disposition swing bed (61) | DRG 871 ==
LOC: BURERS 19:37 → UNDOADMOB 06-10 02:03 → BURMED 06-10 02:03 → INTOOBSV 06-10 07:12 → OBSVTOIN 06-10 07:12 → BURMED 06-11 07:12 → OBSVTOIN 06-11 07:12 → BURMED 06-15 16:55
PROVIDERS: ADMIT Family Medicine; ATTEND Family Medicine
DX: A41.9 Sepsis, unspecified organism (principal); I50.33 Acute on chronic diastolic (congestive) heart failure; U07.1 COVID-19; N18.4 Chronic kidney disease, stage 4 (severe); E87.1 Hypo-osmolality and hyponatremia; F41.9 Anxiety disorder, unspecified; R19.7 Diarrhea, unspecified; E86.0 Dehydration; E11.22 Type 2 diabetes mellitus with diabetic chronic kidney disease; Z88.5 Allergy status to narcotic agent; Z79.899 Other long term (current) drug therapy; Z87.891 Personal history of nicotine dependence
CPT/HCPCS: 36415; 71046; 74019; 74022; 80048; 80053; 81003; 81015; 82553; 83605; 83630; 83690; 83880; 84484; 85014; 85018; 85025; 85049; 87040; 87045; 87046; 87177; 87324; 87328; 87329; 87427; 87449; 87497; 87798; 96365; 96366; G0378; J2543; J3490; J7050; J7512; Q0162; U0002

== ENCOUNTER 2021-06-16 02:28 | Inpatient (IN) | payer MEDICARE, BC ==
[2021-06-16 02:57] VITALS: BMI 23.8
[2021-06-16] MEDS ORDERED: Acetaminophen 325 MG TAB PO PRN (03:21)
[2021-06-16] MEDS ORDERED: Ondansetron ODT 4 MG TAB PO PRN (03:21)
[2021-06-16] MEDS ORDERED: Diphenoxylate HCl/Atropine Tablet PO PRN (03:21)
[2021-06-16] MEDS ORDERED: Guaifenesin DM 100-10/5 ML UDCUP PO PRN (03:21)
[2021-06-16] MEDS ORDERED: Zolpidem Tartrate 5 MG TAB PO PRN (03:22)
[2021-06-16] MEDS ORDERED: Sodium Chloride 0.45% 1,000 ML IV SCH (03:30)
[2021-06-16 05:13] LABS: Anion Gap 17 mmol/L (10-20); BUN (Urea Nitrogen) 44 mg/dL (9.8-20.1); Calc. Creatinine Clearance 23 mL/min (70-130); Calcium 9.8 mg/dL (7.8-10.44); Carbon Dioxide 17 mmol/L (23-31); Chloride 101 mmol/L (98-107); Glucose 65 mg/dL (80-115); Potassium 3.8 mmol/L (3.5-5.1); Sodium 131 mmol/L (136-145)
[2021-06-16 05:26] LABS: #Lymphocytes 1.8 thou/uL (1.20-3.40); #Monocytes 0.7 thou/uL (0.11-0.59); #Neutrophils 3.4 thou/uL (1.40-6.50); %Basophils 0.5 % (0.0-1.0); %Eosinophils 0.1 % (0.0-10.0); %Monocytes 12.4 % (0.0-10.0); Hemoglobin 7.8 g/dL (12.0-16.0); Mean Corpuscular Hemoglobin 32.2 pg (27.0-31.0); Mean Corpuscular Volume 97.8 fL (78.0-98.0); Mean Platelet Volume 6.1 fL (7.4-10.4); Platelet Count 85 thou/uL (130-400); RBC Distribution Width 13.2 % (11.5-14.5); Red Blood Cell (RBC) Count 2.42 mill/uL (4.20-5.40)
[2021-06-16] MEDS: Levothyroxine Sodium 25 MCG TAB PO SCH (05:37)
[2021-06-16] MEDS ORDERED: CYCLOSPORINE MODIFIED 100 MG PO SCH (09:00)
[2021-06-16] MEDS: Fish Oil 1,000 MG CAP PO SCH ×2 (10:05→20:10)
[2021-06-16] MEDS: Valsartan 80 MG TAB PO SCH ×2 (10:06→20:10)
[2021-06-16] MEDS: Ferrous Sulfate 325 MG TAB PO SCH (10:07)
[2021-06-16] MEDS: Losartan Potassium 50 MG TAB PO SCH ×2 (10:07→20:11)
[2021-06-16] MEDS: Atenolol 50 MG TAB PO SCH (10:07)
[2021-06-16] MEDS: Escitalopram Oxalate 20 mg Tablet PO SCH (10:07)
[2021-06-16] MEDS: Multivitamin W/ Minerals 1 TAB PO SCH (10:07)
[2021-06-16] MEDS: Furosemide 40 MG TAB PO SCH (10:07)
[2021-06-16] MEDS: predniSONE 5 MG TAB PO SCH (10:07)
[2021-06-16] MEDS: Cholecalciferol 1,000 UNITS (25 MCG) TAB PO SCH (10:08)
[2021-06-16] MEDS: Calcium Carbonate 500 MG TAB PO SCH (10:08)
[2021-06-16] MEDS: Atorvastatin Calcium 40 MG TAB PO SCH (10:08)
[2021-06-16] MEDS: Doxazosin 2 MG TAB PO SCH ×2 (10:08→20:10)
[2021-06-16] MEDS: Famotidine 20 MG TAB PO SCH (10:09)
[2021-06-16] MEDS: CYCLOSPORINE MODIFIED 50 MG PO SCH ×2 (10:10→20:12)
[2021-06-16] MEDS: MAGNESIUM CHLORIDE 64 MG PO SCH ×2 (10:11→20:12)
[2021-06-16] MEDS: SIROLIMUS 1 MG PO SCH (10:13)
[2021-06-16] MEDS: SEMAGLUTIDE 0.25 MG/0.2 ML SC SCH (10:19)
[2021-06-17] MEDS: Levothyroxine Sodium 25 MCG TAB PO SCH (05:47)
[2021-06-17] MEDS: Multivitamin W/ Minerals 1 TAB PO SCH (09:35)
[2021-06-17] MEDS: Ferrous Sulfate 325 MG TAB PO SCH (09:35)
[2021-06-17] MEDS: predniSONE 5 MG TAB PO SCH (09:35)
[2021-06-17] MEDS: Valsartan 80 MG TAB PO SCH ×2 (09:35→20:33)
[2021-06-17] MEDS: Fish Oil 1,000 MG CAP PO SCH ×2 (09:35→20:33)
[2021-06-17] MEDS: Atenolol 50 MG TAB PO SCH (09:35)
[2021-06-17] MEDS: Losartan Potassium 50 MG TAB PO SCH ×2 (09:35→20:34)
[2021-06-17] MEDS: Doxazosin 2 MG TAB PO SCH ×2 (09:36→20:33)
[2021-06-17] MEDS: Furosemide 40 MG TAB PO SCH (09:36)
[2021-06-17] MEDS: Calcium Carbonate 500 MG TAB PO SCH (09:36)
[2021-06-17] MEDS: Escitalopram Oxalate 20 mg Tablet PO SCH (09:36)
[2021-06-17] MEDS: Atorvastatin Calcium 40 MG TAB PO SCH (09:36)
[2021-06-17] MEDS: Famotidine 20 MG TAB PO SCH (09:36)
[2021-06-17] MEDS: Cholecalciferol 1,000 UNITS (25 MCG) TAB PO SCH (09:36)
[2021-06-17] MEDS: MAGNESIUM CHLORIDE 64 MG PO SCH ×2 (09:38→20:35)
[2021-06-17] MEDS: CYCLOSPORINE MODIFIED 50 MG PO SCH ×2 (09:38→20:34)
[2021-06-17] MEDS: NIACINAMIDE 500 MG PO SCH (09:39)
[2021-06-17] MEDS: SEMAGLUTIDE 0.25 MG/0.2 ML SC SCH (09:40)
[2021-06-17] MEDS: SIROLIMUS 1 MG PO SCH (09:41)
[2021-06-18] MEDS: Levothyroxine Sodium 25 MCG TAB PO SCH (05:20)
[2021-06-18 06:33] VITALS: BP 151/94; TEMP 97.1
[2021-06-18] MEDS: Atorvastatin Calcium 40 MG TAB PO SCH (08:28)
[2021-06-18] MEDS: Calcium Carbonate 500 MG TAB PO SCH (08:28)
[2021-06-18] MEDS: Multivitamin W/ Minerals 1 TAB PO SCH (08:28)
[2021-06-18] MEDS: Cholecalciferol 1,000 UNITS (25 MCG) TAB PO SCH (08:28)
[2021-06-18] MEDS: Doxazosin 2 MG TAB PO SCH (08:28)
[2021-06-18] MEDS: Losartan Potassium 50 MG TAB PO SCH (08:28)
[2021-06-18] MEDS: Famotidine 20 MG TAB PO SCH (08:28)
[2021-06-18] MEDS: Escitalopram Oxalate 20 mg Tablet PO SCH (08:28)
[2021-06-18] MEDS: Atenolol 50 MG TAB PO SCH (08:28)
[2021-06-18] MEDS: Furosemide 40 MG TAB PO SCH (08:28)
[2021-06-18] MEDS: predniSONE 5 MG TAB PO SCH (08:29)
[2021-06-18] MEDS: Fish Oil 1,000 MG CAP PO SCH (08:29)
[2021-06-18] MEDS: Ferrous Sulfate 325 MG TAB PO SCH (08:29)
[2021-06-18] MEDS: Valsartan 80 MG TAB PO SCH (08:29)
[2021-06-18] MEDS: CYCLOSPORINE MODIFIED 50 MG PO SCH (08:32)
[2021-06-18] MEDS: MAGNESIUM CHLORIDE 64 MG PO SCH (08:32)
[2021-06-18] MEDS: NIACINAMIDE 500 MG PO SCH (08:33)
[2021-06-18] MEDS: SEMAGLUTIDE 0.25 MG/0.2 ML SC SCH (08:34)
[2021-06-18] MEDS: SIROLIMUS 1 MG PO SCH (08:34)
[2021-06-18] MEDS ORDERED: PARICALCITOL 1 MCG CAPSULE PO SCH (09:00)
== END 2021-06-18 13:45 | disposition home or self-care (01) | DRG 871 ==
LOC: BURMED 02:28
PROVIDERS: ADMIT Family Medicine; ATTEND Family Medicine
DX: A41.9 Sepsis, unspecified organism (principal); U07.1 COVID-19; I50.33 Acute on chronic diastolic (congestive) heart failure; Z94.1 Heart transplant status; E11.9 Type 2 diabetes mellitus without complications; Z88.8 Allergy status to other drugs, medicaments and biological substances; Z79.899 Other long term (current) drug therapy
CPT/HCPCS: 36415; 80048; 85025; J7512

== ENCOUNTER 2021-06-20 19:21 | Emergency (ER) | payer MEDICARE, BC ==
[2021-06-20 20:11] LABS: Hemoglobin 10.6 g/dL (12.0-16.0); Mean Corpuscular HGB CONC 34.4 g/dL (32.0-36.0); Mean Corpuscular Hemoglobin 32.4 pg (27.0-31.0); Mean Corpuscular Volume 94.2 fL (78.0-98.0); Mean Platelet Volume 5.1 fL (7.4-10.4); Platelet Count 104 thou/uL (130-400); RBC Distribution Width 13.1 % (11.5-14.5); Red Blood Cell (RBC) Count 3.27 mill/uL (4.20-5.40); White Blood Cell (WBC) Count 5.5 thou/uL (4.8-10.8)
[2021-06-20 20:21] LABS: ALT (SGPT) 22 U/L (8-55); AST (SGOT) 28 U/L (5-34); Albumin 3.5 g/dL (3.4-4.8); Alkaline Phosphatase 57 U/L (40-110); Anion Gap 17 mmol/L (10-20); BUN (Urea Nitrogen) 52 mg/dL (9.8-20.1); Bilirubin, Total 0.9 mg/dL (0.2-1.2); Calc. Creatinine Clearance 0 mL/min (70-130); Calcium 9.6 mg/dL (7.8-10.44); Carbon Dioxide 21 mmol/L (23-31); Chloride 92 mmol/L (98-107); Globulin 3.4 g/dL (2.4-3.5); Glucose 97 mg/dL (80-115); Lipase 120 U/L (8-78); Potassium 4.1 mmol/L (3.5-5.1); Protein, Total 6.9 g/dL (5.8-8.1); Sodium 126 mmol/L (136-145)
[2021-06-20 20:37] LABS: CKMB 1.2 ng/mL (0-6.6)
[2021-06-20 20:50] LABS: Band 21 % (5-11); Eosinophils 1 % (0-10); Lymphocytes 34 % (21-51); MDiff Complete? YES; Monocytes 7 % (0-10); Neutrophil 36 % (42-75); Reactive Lymphocytes 1 % (0-10)
== END 2021-06-20 23:55 | disposition short-term general hospital (02) ==
LOC: BURERS 19:21
DX: U07.1 COVID-19 (principal); E87.1 Hypo-osmolality and hyponatremia; K85.90 Acute pancreatitis without necrosis or infection, unspecified; E11.9 Type 2 diabetes mellitus without complications; Z87.891 Personal history of nicotine dependence; Z79.52 Long term (current) use of systemic steroids; Z79.899 Other long term (current) drug therapy
CPT/HCPCS: 71045; 80053; 82553; 83605; 83690; 84484; 85025; 94760

== ENCOUNTER 2021-07-23 11:39 | Outpatient (CLI) | payer MEDICARE, BC ==
[2021-07-23 12:10] LABS: Bilirubin Small (Negative); Blood, Urine Negative (Negative); Clarity Cloudy (Clear); Glucose, Urine (Dipstick) 100 mg/dL (Negative); Ketone, Urine Trace mg/dL (Negative); Leukocyte Negative (Negative); Nitrite Negative (Negative); Protein, Urine (Dipstick) > or equal to 300 mg/dL (Neg-Trace); Specific Gravity, Urine 1.025 (1.005-1.030); Urobilinogen 0.2 mg/dL (Less than 2); pH, Urine 5.5 (5.0-9.0)
[2021-07-23 12:16] LABS: Mean Corpuscular HGB CONC 32.7 g/dL (32.0-36.0); Mean Corpuscular Hemoglobin 32.1 pg (27.0-31.0); Mean Corpuscular Volume 98.2 fL (78.0-98.0); Mean Platelet Volume 7.6 fL (7.4-10.4); Platelet Count 60 thou/uL (130-400); RBC Distribution Width 14.8 % (11.5-14.5); Red Blood Cell (RBC) Count 3.44 mill/uL (4.20-5.40); White Blood Cell (WBC) Count 8.1 thou/uL (4.8-10.8)
[2021-07-23 13:22] LABS: ALT (SGPT) 11 U/L (8-55); AST (SGOT) 15 U/L (5-34); Albumin 3.5 g/dL (3.4-4.8); Alkaline Phosphatase 70 U/L (40-110); Anion Gap 25 mmol/L (10-20); BUN (Urea Nitrogen) 81 mg/dL (9.8-20.1); Bilirubin, Total 0.8 mg/dL (0.2-1.2); Calc. Creatinine Clearance 0 mL/min (70-130); Calcium 9.8 mg/dL (7.8-10.44); Chloride 99 mmol/L (98-107); Globulin 2.6 g/dL (2.4-3.5); Glucose 207 mg/dL (80-115); Potassium 5.2 mmol/L (3.5-5.1); Protein, Total 6.1 g/dL (5.8-8.1); Sodium 128 mmol/L (136-145)
[2021-07-23 13:42] LABS: Carbon Dioxide 9 mmol/L (23-31)
== END 2021-07-23 11:40 | disposition home or self-care (01) ==
LOC: BURMANOR 11:39
PROVIDERS: ATTEND Family Medicine
DX: R41.82 Altered mental status, unspecified (principal); R11.10 Vomiting, unspecified
CPT/HCPCS: 80053; 81003; 85027; 87086